=== PATIENT | female | born 1960 | race Caucasian/White ===

== ENCOUNTER 2018-07-29 16:54 | Emergency (ER) | payer MEDICAID ==
[2018-07-29] MEDS ORDERED: Sodium Chloride 0.9% 1,000 ML IV ONE (17:27)
[2018-07-29] MEDS ORDERED: cefTRIAXone 1 GM in Sodium Chloride 0.9% 50 ML IV ONE (17:28)
--- NOTE | 2018-07-29 17:44 | ED Physician Chart ---
ED Chief Complaint/HPI - Patient Information Date Seen:: 07/29/18 Time Seen:: 17:00 Chief Complaint:: Fever History of Present Illness:: onset x 3 days of fever, cough, S/T, dyspnea, and congestion; pt denies trauma, LOC, ALOC, AMS, H/As, E/As, neck pain, C/P, Abd. Pain, A/N/V/D/c, chills, or urinary s/s Allergies:: Allergies Allergy/AdvReac Type Severity Reaction Status Date / Time No Known Allergies Allergy Verified 06/27/18 13:46 Vitals:: Vital Signs - 8 hr 07/29/18 17:12 Temp 98.4 F HR 76 RR 16 BP 141/81 O2 Sat % 98 Historian:: Patient Review:: Nurse's Note Reviewed, Old Chart Reviewed <Jerald Petit - Last Filed: 07/29/18 18:59> - Patient Information Allergies:: Allergies Allergy/AdvReac Type Severity Reaction Status Date / Time No Known Allergies Allergy Verified 06/27/18 13:46 Vitals:: Vital Signs - 8 hr 07/29/18 07/29/18 07/29/18 17:12 18:34 20:30 Temp 98.4 F 97.6 F 98.5 F HR 76 65 60 RR 16 15 18 BP 141/81 126/83 135/85 O2 Sat % 98 97 99 07/29/18 20:33 Temp HR 66 RR 18 BP O2 Sat % 99 <Carli Ponce - Last Filed: 07/29/18 21:01> ED Review of Systems - Review of Systems General/Constitutional: Fever, No chills, No weight loss, No weakness, No diaphoresis, No edema, No loss of appetite Skin: No skin lesions, No rash, No bruising Head: No headache, No light-headedness Eyes: No loss of vision, No pain, No diplopia ENT: No earache, Nasal drainage, Sore throat, No tinnitus Neck: No neck pain, No swelling, No thyromegaly, No stiffness, No mass noted Cardio Vascular: No chest pain, No palpitations, No PND, No orthopnea, No edema Pulmonary: SOB, Cough, No sputum, No wheezing GI: No nausea, No vomiting, No diarrhea, No pain, No melena, No hematochezia, No constipation, No hematemesis G/U: No dysuria, No frequency, No hematuria, No nacturia [employer]: No vaginal discharge, No abnormal vaginal bleed, No contraction Musculoskeletal: No bone or joint pain, No back pain, No muscle pain Endocrine: No polyuria, No polydipsia Psychiatric: No prior psych history, No depression, No anxiety, No suicidal ideation, No homicidal ideation, No auditory hallucination, No visual hallucination Hematopoietic: No bruising, No lymphadenopathy Allergic/Immuno: No urticaria, No angioedema Neurological: No syncope, No focal symptoms, No weakness, No paresthesia, No headache, No seizure, No dizziness, No confusion, No vertigo <Jerald Petit - Last Filed: 07/29/18 18:59> ED Past Medical History - Past Medical History Obtainable: Yes Past Medical History: No significant medical hx Family History: None Social History: Non Smoker, No Alcohol, No Drug Use, Surgical History: None Psychiatricy History: None Medication: Reviewed <Jerald Petit - Last Filed: 07/29/18 18:59> Family Medical History - Family Member Mother History Unknown: Yes Ethnicity: <Jerald Petit - Last Filed: 07/29/18 18:59> ED Physical Exam - Physical Examination General/Constitutional: Awake, Well-developed, well-nourished, Alert, No distress, GCS 15, Non-toxic appearing, Ambulatory Head: Atraumatic Eyes: Lids, conjuctiva normal, PERRL, EOMI Skin: Nl inspection, No rash, No skin lesions, No ecchymosis, Well hydrated, No lymphadenopathy ENMT: External ears, nose nl, TM canals nl, Nasal exam nl, Lips, teeth, gums nl , Tonsils nl Other ENMT comments:: + Nasal Congestion; Pharynx: Injected Neck: Nontender, Full ROM w/o pain, No JVD, No nuchal rigidity, No bruit, No mass, No stridor Other Neck comments:: supple; no meningeal signs; no cervical tenderness; no bruits Respiratory: Nl effort/Exclusion, Clear to Auscultation, No Wheeze/Rhonchi/Rales Cardio Vascular: RRR, No murmur, gallop, rubs, NL S1 S2, Carotid/Femoral/Distal pulses equal bilaterally GI: No tenderness/rebounding/guarding, No organomegaly, No hernia, Normal BS's, Nondistended, No mass/bruits, No McBurney tenderness Other GI comments:: no pulsatile masses : No CVA tenderness Extremities: No tenderness or effusion, Full ROM, normal strength in all extremities, No edema, Normal digits & nails Neuro/Psych: Alert/oriented, DTR's symmetric, Normal sensory exam, Normal motor strength, Judgement/insight normal, Mood normal, Normal gait, No focal deficits Other Neuro/Psych comments:: no focal signs Misc: Normal back, No paraspinal tenderness <Jerald Petit - Last Filed: 07/29/18 18:59> ED Labs/Radiology/EKG Results - Lab Results Comments:: Reviewed - EKG Interpretations EKG Time:: 17:34 Rate & Rhythm: 69; NSR Comments:: T-Wave Inversions; non-specific st-t changes <Jerald Petit - Last Filed: 07/29/18 18:59> - Lab Results Results: Laboratory Tests 07/29/18 07/29/18 07/29/18 17:51 17:51 17:51 WBC 6.0 RBC 4.47 Hgb 12.8 Hct 39.1 L MCV 87.5 MCH 28.6 MCHC Differential 32.7 RDW 12.4 Plt Count 246 MPV 8.3 Neutrophils % 51.0 Lymphocytes % 41.1 Monocytes % 5.2 Eosinophils % 2.0 Basophils % 0.7 PT 9.8 INR 0.94 D-Dimer < 100 L Sodium 141 Potassium 3.8 Chloride 106 Carbon Dioxide 25.1 Anion Gap 13.7 BUN 10 Creatinine 0.7 Est GFR ( Amer) > 60.0 Est GFR (Non-Af Amer) > 60.0 BUN/Creatinine Ratio 14.3 Glucose 136 H Calcium 9.0 Total Bilirubin 0.3 AST 17 ALT 16 Alkaline Phosphatase 70 Creatine Kinase 63 Troponin I B-Natriuretic Peptide Total Protein 7.2 Albumin 3.8 Globulin 3.4 Albumin/Globulin Ratio 1.1 Triglycerides 125 Cholesterol 205 H LDL Cholesterol Direct 130 HDL Cholesterol 51 Amylase Lipase Serum , Qual 07/29/18 07/29/18 07/29/18 17:51 17:51 17:51 WBC RBC Hgb Hct MCV MCH MCHC Differential RDW Plt Count MPV Neutrophils % Lymphocytes % Monocytes % Eosinophils % Basophils % PT INR D-Dimer Sodium Potassium Chloride Carbon Dioxide Anion Gap BUN Creatinine Est GFR ( Amer) Est GFR (Non-Af Amer) BUN/Creatinine Ratio Glucose Calcium Total Bilirubin AST ALT Alkaline Phosphatase Creatine Kinase Troponin I < 0.01 L B-Natriuretic Peptide 34.0 Total Protein Albumin Globulin Albumin/Globulin Ratio Triglycerides Cholesterol LDL Cholesterol Direct HDL Cholesterol Amylase 50 Lipase 35 Serum , Qual 07/29/18 17:51 WBC RBC Hgb Hct MCV MCH MCHC Differential RDW Plt Count MPV Neutrophils % Lymphocytes % Monocytes % Eosinophils % Basophils % PT INR D-Dimer Sodium Potassium Chloride Carbon Dioxide Anion Gap BUN Creatinine Est GFR ( Amer) Est GFR (Non-Af Amer) BUN/Creatinine Ratio Glucose Calcium Total Bilirubin AST ALT Alkaline Phosphatase Creatine Kinase Troponin I B-Natriuretic Peptide Total Protein Albumin Globulin Albumin/Globulin Ratio Triglycerides Cholesterol LDL Cholesterol Direct HDL Cholesterol Amylase Lipase Serum , Qual NEGATIVE <Carli Ponce - Last Filed: 07/29/18 21:01> ED Septic Shock - . Is Septic Shock (SBP<90, OR Lactate>4 mmol\L) present?: No - <6hrs of presentation: Vital Signs: Vital Signs - 8 hr 07/29/18 17:12 Temp 98.4 F HR 76 RR 16 BP 141/81 O2 Sat % 98 <Jerald Petit - Last Filed: 07/29/18 18:59> - <6hrs of presentation: Vital Signs: Vital Signs - 8 hr 07/29/18 07/29/18 07/29/18 17:12 18:34 20:30 Temp 98.4 F 97.6 F 98.5 F HR 76 65 60 RR 16 15 18 BP 141/81 126/83 135/85 O2 Sat % 98 97 99 07/29/18 20:33 Temp HR 66 RR 18 BP O2 Sat % 99 <Carli Ponce - Last Filed: 07/29/18 21:01> ED Reassessment (Disposition) - Reassessment Reassessment Condition:: Improved - Diagnosis Diagnosis:: Sore Throat; Pharyngitis; Dyspnea; Cough; Myocardial Ischemia <Jerald Petit - Last Filed: 07/29/18 18:59> - Reassessment Reassessment:: After NS 1L IV, Rocephin 1g IV and DuoNeb, pt felt significant improvement of breathing with decreased cough. Pt will be discharged home with Z-pack for bronchitis. Reassessment Condition:: Improved - Aftercare/Follow up Instructions Medication Prescribed:: Azithromycin 250mg PO 2 tabs first day, followed by one tab x days, #6 - Patient Disposition Discharge/Transfer:: Home <Carli Ponce - Last Filed: 07/29/18 21:01>
[2018-07-29 18:28] LABS: % BASOPHILS 0.7 % (0.0-2.0); % LYMPHOCYTES 41.1 % (20.0-50.0); % MONOCYTES 5.2 % (2.0-10.0); EOSINOPHILE ABSOLUTE 0.1 Th/cmm (0.1-0.4); HEMATOCRIT 39.1 % (41.0-60); HEMOGLOBIN 12.8 gm/dL (12-16); LYMPHOCYTE ABSOLUTE 2.5 Th/cmm (1.5-3.0); MEAN CELL VOLUME 87.5 fl (81-100); MEAN CORPUSCULAR HEMOGLOBIN 28.6 pg (27.0-31.0); MEAN CORPUSCULAR HGB CONC 32.7 pg (28.0-36.0); MEAN PLATELET VOLUME 8.3 fl; MONOCYTE ABSOLUTE 0.3 Th/cmm (0.3-1.0); NEUTROPHILE ABSOLUTE 3.1 Th/cmm (1.8-8.0); PLATELET COUNT 246 Th/cmm (150-400); RED BLOOD COUNT 4.47 Mil/cmm (3.80-5.10); RED CELL DISTRIBUTION WIDTH 12.4 % (11.5-20.0)
[2018-07-29 18:57] LABS: ALB/GLOB RATIO 1.1 (1.0-1.8); ALBUMIN 3.8 gm/dL (3.7-5.3); ALKALINE PHOSPHATASE 70 U/L (34-104); ANION GAP 13.7 (7.0-16.0); BILIRUBIN,TOTAL 0.3 mg/dL (0.3-1.0); BUN - UREA NITROGEN 10 mg/dL (7-25); CARBON DIOXIDE 25.1 mEq/L (21.0-31.0); CHLORIDE 106 mEq/L (98-107); CHOLESTEROL 205 mg/dL (<200); CREATININE - SERUM 0.7 mg/dL (0.6-1.2); CREATININE KINASE 63 U/L (30-223); GFR AFRICAN-AMERICAN > 60.0 ml/min (>90); GFR NON AFRICAN-AMERICAN > 60.0 ml/min; GLUCOSE 136 mg/dL (70-105); HDL -HIGH DENSITY LIPOPROTEIN 51 mg/dL (23-92); POTASSIUM SERUM 3.8 mEq/L (3.5-5.1); SGOT 17 U/L (13-39); SGPT/ALT 16 U/L (7-52); SODIUM SERUM 141 mEq/L (136-145); TOTAL PROTEIN,SERUM 7.2 gm/dL (6.0-8.3); TRIGLYCERIDES 125 mg/dL (<150)
[2018-07-29 18:58] LABS: DDIMER QUANT < 100 ng/mL (100-400)
[2018-07-29 19:03] LABS: INR 0.94 (0.5-1.4); PROTHROMBIN TIME (TEST) 9.8 SECONDS (9.5-11.5)
[2018-07-29 19:16] LABS: AMYLASE SERUM 50 U/L (29-103); LIPASE 35 U/L (11-82)
[2018-07-29] MEDS ORDERED: Albuterol/Ipratropium Neb 3 ML AERS HHN ONE ×2 (20:28→20:32)
--- NOTE | 2018-07-30 09:10 | Diagnostic Imaging Report ---
Portable chest x-ray Time: 1938 History: : Dyspnea Allowing for portable technique the heart size is normal. No focal pulmonary parenchymal processes. No hilar or mediastinal abnormalities. Impression: No acute abnormalities.
== END 2018-07-29 21:11 | disposition home or self-care (01) ==
LOC: ER 16:54
DX: I25.9 Chronic ischemic heart disease, unspecified (principal); J02.9 Acute pharyngitis, unspecified; R05 Cough
CPT/HCPCS: 99284; 96365; 94760; 94640; 93005; 71045; 84484; 83880; 36415; 85379; 85025; 85610; 82150; 82550; 84703; 83690; 80053; 80061; J0696; J7030